=== PATIENT | male | born 1970 | race Hispanic/Latino ===

== ENCOUNTER 2020-08-21 12:22 | Emergency (ER) | payer OTHER ==
[~2020-08-21] VITALS: Ht 165.1 cm; Wt 108.0 kg
[2020-08-21] MEDS ORDERED: SODIUM CHLORIDE 0.9% 1000ML 1,000 ML IV STA (13:00)
[2020-08-21] MEDS ORDERED: PANTOPRAZOLE 40 MG 10ML VIAL IV NR (13:00)
[2020-08-21 13:13] LABS: BASOPHILS % 0.5 % (0.0-1.0); HEMATOCRIT 49.6 % (38.2-49.6); HEMOGLOBIN 16.9 g/dL (14.0-18.0); LYMPHOCYTES # (AUTO) 0.7 (1.0-3.2); LYMPHOCYTES % 16.8 % (18.0-39.1); MEAN CORPUSCULAR HEMOGLOBIN 31.1 pg (28-32); MEAN CORPUSCULAR HGB CONC 34.1 g/dL (31-35); MEAN CORPUSCULAR VOLUME 91.2 fL (81-99); MONOCYTES # (AUTO) 0.5 (0.2-0.8); MONOCYTES % 11.4 % (4.4-11.3); NEUTROPHILS % 70.8 % (38.7-80.0); PLATELET COUNT 131 x10e3/uL (140-360); RED BLOOD COUNT 5.44 x10e6/uL (4.3-5.7); RED CELL DISTRIBUTION WIDTH 12.6 % (11.7-14.4)
[2020-08-21] MEDS ORDERED: ONDANSETRON HCL INJ 2MG/ML 2ML 2 MG/ML VIAL IV NR (13:15)
[2020-08-21 13:20] LABS: INR 0.93; PROTHROMBIN TIME 12.9 seconds (11.9-14.5)
[2020-08-21 13:21] LABS: PARTIAL THROMBOPLASTIN TIME 27.9 seconds (23.8-35.5)
[2020-08-21 13:30] LABS: ALANINE AMINOTRANSFERASE 45 IU/L (0-55); ALKALINE PHOSPHATASE 49 IU/L (40-150); AMYLASE 53 U/L (25-125); ANION GAP 15.9 mmol/L (8-16); BLOOD UREA NITROGEN 17 mg/dL (7-26); BUN/CREATININE RATIO 16 (6-25); CALCIUM 8.7 mg/dL (8.4-10.2); CARBON DIOXIDE 20 mmol/L (22-29); CHLORIDE 103 mmol/L (98-107); CREATINE KINASE 530 IU/L (30-200); CREATININE, SERUM 1.06 mg/dL (0.72-1.25); EST GLOMERULAR FILTRATION RATE > 60 ML/MIN (60-); GLUCOSE 106 mg/dL (74-118); LIPASE 34 U/L (8-78); MAGNESIUM 2.1 MG/DL (1.3-2.1); POTASSIUM 3.9 mmol/L (3.5-5.1); SODIUM 135 mmol/L (136-145)
[2020-08-21 13:42] LABS: CREATINE KINASE MB < 1.00 ng/mL (0-4.3)
[2020-08-21 17:36] LABS: BILIRUBIN,URINE NEGATIVE (NEGATIVE); CLARITY,URINE SL CLOUDY (CLEAR); COLOR,URINE YELLOW (YELLOW); KETONES,URINE 1+ (NEGATIVE); LEUKOCYTE ESTERASE ,URINE NEGATIVE (NEGATIVE); NITRITE,URINE NEGATIVE (NEGATIVE); PROTEIN,URINE DIPSTICK NEGATIVE (NEGATIVE); URINE UROBILINOGEN 0.2 mg/dL (0.2 - 1)
[2020-08-21 17:50] LABS: BACTERIA,URINE RARE /HPF
[2020-08-21] MEDS ORDERED: IOPAMIDOL 370 MG/ML 200 ML INFUS..BTL INJ ONE (17:55)
[2020-08-21] MEDS ORDERED: SODIUM CHLORIDE 0.9% 50ML 50 ML ONE (17:55)
[2020-08-21] MEDS ORDERED: ACETAMINOPHEN 325 MG TAB PO NR (18:30)
[2020-08-21 19:05] VITALS: BP 130/80
== END 2020-08-21 19:07 | disposition home or self-care (01) ==
LOC: ER 18:23
DX: R11.2 Nausea with vomiting, unspecified (principal); Z20.828 Contact with and (suspected) exposure to other viral communicable diseases; F41.9 Anxiety disorder, unspecified; F43.10 Post-traumatic stress disorder, unspecified
CPT/HCPCS: 36415; 71045; 74177; 80053; 81001; 82150; 82550; 82553; 83605; 83690; 83735; 84484; 85025; 85610; 85730; 87040; 87086; 99284; J2405; J7030; Q9967; U0002

== ENCOUNTER 2022-11-23 17:35 | Inpatient (IN) | payer BC, OTHER ==
[~2022-11-23] VITALS: Ht 172.7 cm; Wt 134.7 kg
[2022-11-23] MEDS ORDERED: ONDANSETRON HCL INJ 2MG/ML 2ML 2 MG/ML VIAL IV STA (19:15)
[2022-11-23] MEDS ORDERED: Morphine 4mg INJECTION 4 MG/ML INJ IV ONE (19:15)
[2022-11-23] MEDS ORDERED: SODIUM CHLORIDE FLUSH 10 ML SYR IV PRN (19:16)
[2022-11-23] MEDS ORDERED: ENOXAPARIN SODIUM INJ 100 MG/ML SYR SC STA (19:19)
[2022-11-23 19:53] LABS: INR 1.01; PROTHROMBIN TIME 13.5 seconds (11.9-14.5)
[2022-11-23 19:54] LABS: PARTIAL THROMBOPLASTIN TIME 29.4 seconds (23.8-35.5)
[2022-11-23 20:00] LABS: ALBUMIN 3.7 g/dL (3.5-5.0); ALBUMIN/GLOBULIN RATIO 0.8 (0.8-2.0); ANION GAP 12.9 mmol/L (8-16); CALCIUM 9.5 mg/dL (8.4-10.2); CREATININE, SERUM 0.87 mg/dL (0.72-1.25); POTASSIUM 3.9 mmol/L (3.5-5.1)
[2022-11-23] MEDS ORDERED: Morphine 4mg INJECTION 4 MG/ML INJ IV PRN (20:00)
[2022-11-23 20:05] LABS: BASOPHILS % 0.4 % (0.0-1.0); EOSINOPHILS # (AUTO) 0.2 (0.0-0.4); EOSINOPHILS % 2.2 % (0.0-6.0); HEMATOCRIT 47.9 % (38.2-49.6); HEMOGLOBIN 15.1 g/dL (14.0-18.0); LYMPHOCYTES # (AUTO) 1.4 (1.0-3.2); LYMPHOCYTES % 14.9 % (18.0-39.1); MEAN CORPUSCULAR HEMOGLOBIN 30.9 pg (28-32); MEAN CORPUSCULAR HGB CONC 31.5 g/dL (31-35); MEAN CORPUSCULAR VOLUME 98.2 fL (81-99); NEUTROPHILS % 72.4 % (38.7-80.0); PLATELET COUNT 230 x10e3/uL (140-360); RED BLOOD COUNT 4.88 x10e6/uL (4.3-5.7); RED CELL DISTRIBUTION WIDTH 11.7 % (11.7-14.4)
[2022-11-23 21:30] VITALS: BP 121/85
[2022-11-23] MEDS ORDERED: CYMBALTA30 MG PO (22:40)
[2022-11-23] MEDS ORDERED: SEROQUEL50 MG PO (22:40)
[2022-11-23] MEDS ORDERED: GABAPENTIN300 MG PO (22:40)
[2022-11-23] MEDS ORDERED: MINIPRESS1 MG PO (22:40)
[2022-11-23] MEDS ORDERED: diclofenac PO (22:40)
[2022-11-23] MEDS ORDERED: PRAZOSIN HCL 1 MG CAP PO ONE (23:15)
[2022-11-23] MEDS ORDERED: QUETIAPINE FUMARATE 100 MG TAB PO ONE (23:15)
[2022-11-24] VITALS (8 sets, daily range): BP systolic 101–135; BP diastolic 68–82
[2022-11-24] MEDS: SODIUM CHLORIDE 0.9% 1000ML 1,000 ML IV SCH ×2 (00:15→03:57)
[2022-11-24] MEDS: ONDANSETRON HCL INJ 2MG/ML 2ML 2 MG/ML VIAL IV PRN ×2 (03:56→10:40)
[2022-11-24 05:49] LABS: BASOPHILS % 0.6 % (0.0-1.0); EOSINOPHILS # (AUTO) 0.3 (0.0-0.4); EOSINOPHILS % 4.8 % (0.0-6.0); HEMATOCRIT 43.5 % (38.2-49.6); HEMOGLOBIN 13.5 g/dL (14.0-18.0); LYMPHOCYTES # (AUTO) 2.3 (1.0-3.2); LYMPHOCYTES % 34.8 % (18.0-39.1); MEAN CORPUSCULAR HEMOGLOBIN 31.5 pg (28-32); MEAN CORPUSCULAR VOLUME 101.4 fL (81-99); MONOCYTES # (AUTO) 0.8 (0.2-0.8); NEUTROPHILS # (AUTO) 3.1 (2.1-6.9); NEUTROPHILS % 47.5 % (38.7-80.0); PLATELET COUNT 184 x10e3/uL (140-360); RED BLOOD COUNT 4.29 x10e6/uL (4.3-5.7); RED CELL DISTRIBUTION WIDTH 11.8 % (11.7-14.4)
[2022-11-24 06:06] LABS: INR 1.04; PARTIAL THROMBOPLASTIN TIME 37.4 seconds (23.8-35.5); PROTHROMBIN TIME 13.8 seconds (11.9-14.5)
[2022-11-24 06:15] LABS: ALBUMIN 3.2 g/dL (3.5-5.0); ALBUMIN/GLOBULIN RATIO 0.8 (0.8-2.0); ANION GAP 13.1 mmol/L (8-16); CALCIUM 9.3 mg/dL (8.4-10.2); CREATININE, SERUM 0.81 mg/dL (0.72-1.25); POTASSIUM 4.1 mmol/L (3.5-5.1)
[2022-11-24] MEDS: ENOXAPARIN SODIUM INJ 100 MG/ML SYR SC SCH ×2 (09:22→20:26)
[2022-11-24] MEDS: GABAPENTIN 300 MG CAP PO SCH (09:22)
[2022-11-24] MEDS: DULOXETINE HCL 30 MG DELAYED RELEASE PO SCH (09:22)
[2022-11-24] MEDS: Morphine 4mg INJECTION 4 MG/ML INJ IV PRN ×2 (10:39→18:46)
[2022-11-24] MEDS: SENNA-S TABLET PO SCH ×2 (13:23→18:46)
[2022-11-24] MEDS: HYDROCODONE/APAP 10MG-325MG TAB PO PRN (14:05)
[2022-11-24] MEDS: DICLOFENAC SOD 50 MG TAB PO SCH (19:12)
[2022-11-24] MEDS: PRAZOSIN HCL 1 MG CAP PO SCH (20:26)
[2022-11-24] MEDS: QUETIAPINE FUMARATE 25 MG TAB PO SCH (20:27)
[2022-11-25] VITALS (8 sets, daily range): BP systolic 110–130; BP diastolic 65–82
[2022-11-25] MEDS: HYDROCODONE/APAP 10MG-325MG TAB PO PRN ×2 (04:44→19:58)
[2022-11-25] MEDS: DULOXETINE HCL 30 MG DELAYED RELEASE PO SCH (09:49)
[2022-11-25] MEDS: ENOXAPARIN SODIUM INJ 100 MG/ML SYR SC SCH ×2 (09:49→19:59)
[2022-11-25] MEDS: GABAPENTIN 300 MG CAP PO SCH (09:49)
[2022-11-25] MEDS: SENNA-S TABLET PO SCH ×2 (09:49→17:55)
[2022-11-25] MEDS: Morphine 4mg INJECTION 4 MG/ML INJ IV PRN ×2 (09:50→17:53)
[2022-11-25] MEDS: DICLOFENAC SOD 50 MG TAB PO SCH (10:22)
[2022-11-25] MEDS: QUETIAPINE FUMARATE 25 MG TAB PO SCH (19:58)
[2022-11-25] MEDS: PRAZOSIN HCL 1 MG CAP PO SCH (19:59)
[2022-11-26] VITALS (9 sets, daily range): BP systolic 107–130; BP diastolic 65–89
[2022-11-26] MEDS: DICLOFENAC SOD 50 MG TAB PO SCH (09:29)
[2022-11-26] MEDS: ENOXAPARIN SODIUM INJ 100 MG/ML SYR SC SCH ×2 (09:30→21:34)
[2022-11-26] MEDS: SENNA-S TABLET PO SCH ×2 (09:30→17:07)
[2022-11-26] MEDS: GABAPENTIN 300 MG CAP PO SCH (09:30)
[2022-11-26] MEDS: DULOXETINE HCL 30 MG DELAYED RELEASE PO SCH (09:30)
[2022-11-26] MEDS: HYDROCODONE/APAP 10MG-325MG TAB PO PRN ×2 (09:37→17:07)
[2022-11-26] MEDS ORDERED: ONDANSETRON HCL 4 MG ORAL DISINTEGRATING TAB PO PRN (10:00)
[2022-11-26] MEDS: PRAZOSIN HCL 1 MG CAP PO SCH (21:35)
[2022-11-26] MEDS: QUETIAPINE FUMARATE 25 MG TAB PO SCH (21:35)
[2022-11-27 01:31] VITALS: BP 103/64
[2022-11-27 01:33] VITALS: BP 103/64
[2022-11-27 05:30] VITALS: BP 116/74
[2022-11-27 05:32] VITALS: BP 116/74
[2022-11-27 05:52] LABS: BASOPHILS % 0.7 % (0.0-1.0); EOSINOPHILS # (AUTO) 0.2 (0.0-0.4); EOSINOPHILS % 5.1 % (0.0-6.0); HEMOGLOBIN 13.3 g/dL (14.0-18.0); LYMPHOCYTES # (AUTO) 1.4 (1.0-3.2); MEAN CORPUSCULAR HEMOGLOBIN 31.4 pg (28-32); MEAN CORPUSCULAR HGB CONC 34.1 g/dL (31-35); MONOCYTES # (AUTO) 0.5 (0.2-0.8); MONOCYTES % 10.9 % (4.4-11.3); NEUTROPHILS # (AUTO) 2.2 (2.1-6.9); NEUTROPHILS % 51.1 % (38.7-80.0); PLATELET COUNT 195 x10e3/uL (140-360); RED BLOOD COUNT 4.24 x10e6/uL (4.3-5.7); RED CELL DISTRIBUTION WIDTH 11.8 % (11.7-14.4)
[2022-11-27 06:09] LABS: ANION GAP 12.9 mmol/L (8-16); CALCIUM 9.2 mg/dL (8.4-10.2); CREATININE, SERUM 0.77 mg/dL (0.72-1.25); POTASSIUM 3.9 mmol/L (3.5-5.1)
[2022-11-27 08:01] VITALS: BP 116/74
[2022-11-27 08:11] VITALS: BP 119/73
[2022-11-27] MEDS: SENNA-S TABLET PO SCH (08:48)
[2022-11-27] MEDS: GABAPENTIN 300 MG CAP PO SCH (08:48)
[2022-11-27] MEDS: DICLOFENAC SOD 50 MG TAB PO SCH (08:48)
[2022-11-27] MEDS: DULOXETINE HCL 30 MG DELAYED RELEASE PO SCH (08:49)
[2022-11-27] MEDS: ENOXAPARIN SODIUM INJ 100 MG/ML SYR SC SCH (08:49)
[2022-11-27] MEDS: HYDROCODONE/APAP 10MG-325MG TAB PO PRN (08:54)
[2022-11-27] MEDS ORDERED: ELIQUIS5 MG PO (10:59)
[2022-11-27] MEDS ORDERED: tylenol #3 PO (11:01)
[2022-11-27] MEDS ORDERED: ONDANSETRON ODT4 MG PO (11:02)
== END 2022-11-27 13:05 | disposition home or self-care (01) | DRG 300 ==
LOC: ER 17:41 → INTOOBSV 19:55 → ERHOLD 19:55 → MED/SURG2 21:52 → OBSVTOIN 11-25 10:04
PROVIDERS: ADMIT Internal Medicine; ATTEND Internal Medicine
PROC: 2W3QX1Z Immobilization of Right Lower Leg using Splint (ICD-10-PCS; principal; 2022-11-23)
DX: I82.401 Acute embolism and thrombosis of unspecified deep veins of right lower extremity (principal); F43.10 Post-traumatic stress disorder, unspecified; E66.01 Morbid (severe) obesity due to excess calories; S82.831D Other fracture of upper and lower end of right fibula, subsequent encounter for closed fracture with routine healing; G47.33 Obstructive sleep apnea (adult) (pediatric); W19.XXXD Unspecified fall, subsequent encounter; Z99.89 Dependence on other enabling machines and devices; Z68.42 Body mass index [BMI] 45.0-49.9, adult; Z98.890 Other specified postprocedural states
CPT/HCPCS: 36415; 80048; 80053; 85025; 85610; 85730; 93005; 93306; 93971; 99252; 99285; G0378; J1650; J2270; J2405; J7030

== ENCOUNTER 2024-08-03 18:33 | Emergency (ER) | payer OTHER ==
[~2024-08-03] VITALS: Ht 170.2 cm; Wt 79.4 kg
[~2024-08-03 18:33] MED LIST: CYCLOBENZAPRINE10 MG PO; CYMBALTA30 MG PO; ELIQUIS5 MG PO; GABAPENTIN300 MG PO; IBUPROFEN800 MG PO; MINIPRESS1 MG PO; ONDANSETRON ODT4 MG PO; SEROQUEL50 MG PO; diclofenac PO; tylenol #3 PO
[2024-08-03 18:49] VITALS: PULSE 92; RESP 16; TEMP 98.4; O2SAT 97
== END 2024-08-03 19:55 | disposition home or self-care (01) ==
LOC: ER 19:03
DX: H93.11 Tinnitus, right ear (principal); F41.9 Anxiety disorder, unspecified; F32.A Depression, unspecified; F43.10 Post-traumatic stress disorder, unspecified; M54.9 Dorsalgia, unspecified; G89.29 Other chronic pain
CPT/HCPCS: 99282